=== PATIENT | female | born 1995 | race Hispanic/Latino ===

== ENCOUNTER 2019-12-16 10:25 | Emergency (ER) | payer SELFPAY | END 2019-12-16 12:55 | disposition home or self-care (01) | LOC: ERS 10:25 | DX: J02.9 Acute pharyngitis, unspecified (principal) | CPT/HCPCS: 87804; 99283 ==

== ENCOUNTER 2020-06-17 06:41 | Emergency (ER) | payer SELFPAY ==
[2020-06-17] MEDS ORDERED: Ketorolac Tromethamine 30 MG/ML VIAL ONE (07:50)
[2020-06-17] MEDS ORDERED: Acetaminophen 500 MG TAB ONE (07:50)
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
== END 2020-06-17 08:50 | disposition home or self-care (01) ==
LOC: ERS 06:41
DX: S16.1XXA Strain of muscle, fascia and tendon at neck level, initial encounter (principal); M54.5 Low back pain; V89.2XXA Person injured in unspecified motor-vehicle accident, traffic, initial encounter
CPT/HCPCS: 72040; 72100; 96372; J1885

== ENCOUNTER 2024-03-19 16:19 | Observation (INO) | payer SELFPAY ==
[2024-03-19 17:18] LABS: #Basophils Less than 0.03 10x3/uL (0.0-0.2); #Eosinphils Less than 0.03 10x3/uL (0.0-0.7); %Basophils 0.1 % (0.0-1.0); %Lymphocytes 10.2 % (21.0-51.0); %Monocytes 2.9 % (0.0-10.0); %Neutrophils 86.4 % (42.0-75.0); Hematocrit 40.5 % (36.0-47.0); Hemoglobin 13.8 g/dL (12.0-16.0); Mean Corpuscular HGB CONC 34.1 g/dL (32.0-36.0); Mean Corpuscular Hemoglobin 31.4 pg (27.0-31.0); Mean Corpuscular Volume 92.3 fL (78.0-98.0); Mean Platelet Volume 10.2 fL (7.4-10.4); Platelet Count 467 10x3/uL (130-400); RBC Distribution Width 12.6 % (11.5-14.5); Red Blood Cell (RBC) Count 4.39 mill/uL (4.20-5.40)
[2024-03-19 17:33] LABS: ALT (SGPT) 14 U/L (8-55); AST (SGOT) 15 U/L (5-34); Alkaline Phosphatase 92 U/L (40-110); Anion Gap 12 mmol/L (10-20); BUN (Urea Nitrogen) 8 mg/dL (7.0-18.7); Bilirubin, Total 0.6 mg/dL (0.2-1.2); Calc. Creatinine Clearance 0 mL/min (70-130); Calcium 9.4 mg/dL (7.8-10.44); Carbon Dioxide 26 mmol/L (22-29); Chloride 103 mmol/L (98-107); Estimated GFR 122; Globulin 4.1 g/dL (2.4-3.5); Glucose 119 mg/dL (70-105); Lipase 16 U/L (8-78); Potassium 3.6 mmol/L (3.5-5.1); Protein, Total 8.1 g/dL (6.0-8.3); Sodium 137 mmol/L (136-145)
[2024-03-19] MEDS ORDERED: Ondansetron PF 4 MG/2 ML Vial ONE (18:38)
[2024-03-19] MEDS ORDERED: Morphine 4 MG/ML VIAL ONE (18:38)
[2024-03-19 19:57] LABS: Bacteria/HPF 1+ HPF (None Seen); Bilirubin Negative (Negative); Blood, Urine 3+ (Negative); CAUTI Indications for Culture Pelvic or flank pain; Clarity Clear (Clear); Glucose, Urine (Dipstick) Normal (Negative); Ketone, Urine Negative (Negative); Leukocyte Negative Leu/uL (Negative); Nitrite Negative (Negative); Protein, Urine (Dipstick) Negative (Neg-Trace); Specific Gravity, Urine 1.005 (1.002-1.036); Squamous Epithelial 0-3 HPF (0-3); Urobilinogen Normal mg/dL (Less than 2); WBC/HPF None Seen HPF (0-3); pH, Urine 6.5 (5.0-9.0)
[2024-03-19 19:58] LABS: Pregnancy Test - Urine (BHCG) Negative (Negative); Pregu Control Background? CLEAR/WHITE (CLR/WHITE); Pregu Control Bar Appear? YES (CONTROL BAR); Specific Gravity 1.005 (1.002-1.036); Urine Culture Reflex No No
[2024-03-19] MEDS ORDERED: Ondansetron PF 4 MG/2 ML Vial IVP PRN (20:56)
[2024-03-19] MEDS ORDERED: Ipratropium/Albuterol 3 ML NEB NEB PRN (20:56)
[2024-03-19] MEDS ORDERED: Morphine 2 MG/ML VIAL SLOW IVP PRN (20:56)
[2024-03-19] MEDS ORDERED: Piperacillin/Tazobactam 4.5 GM VIAL ONE (21:13)
[2024-03-19] MEDS ORDERED: Sodium Chloride 0.9% 100 ML ONE (21:14)
[2024-03-19] MEDS ORDERED: Piperacillin/Tazobactam 3.375 GM in Sodium Chloride 0.9% 100 ML IVPB SCH (21:15)
[2024-03-19 22:35] VITALS: BMI 34.2
[2024-03-20] MEDS: Acetaminophen 325 MG TAB PO SCH (02:01)
[2024-03-20] MEDS: Famotidine/PF 20 mg/2ml Vial SLOW IVP SCH (02:03)
[2024-03-20] MEDS: Piperacillin/Tazobactam 3.375 GM in Sodium Chloride 0.9% 100 ML IVPB SCH (02:05)
[2024-03-20] MEDS: Sodium Chloride 0.9% 1,000 ML IV SCH (02:06)
[2024-03-20] MEDS ORDERED: Bupivacaine PF 0.5% 30 ML VIAL ONE (07:56)
[2024-03-20] MEDS ORDERED: EPINEPHrine 1 MG/ML VIAL ONE (07:56)
[2024-03-20] MEDS ORDERED: traMADol HCl 50 MG TAB PO PRN (07:57)
[2024-03-20 08:24] LABS: #Basophils Less than 0.03 10x3/uL (0.0-0.2); %Basophils 0.2 % (0.0-1.0); %Eosinophils 1.5 % (0.0-10.0); %Lymphocytes 26.8 % (21.0-51.0); %Monocytes 7.4 % (0.0-10.0); %Neutrophils 63.8 % (42.0-75.0); Hematocrit 36.5 % (36.0-47.0); Hemoglobin 12.3 g/dL (12.0-16.0); Mean Corpuscular HGB CONC 33.7 g/dL (32.0-36.0); Mean Corpuscular Hemoglobin 31.8 pg (27.0-31.0); Mean Corpuscular Volume 94.3 fL (78.0-98.0); Mean Platelet Volume 10.6 fL (7.4-10.4); Platelet Count 384 10x3/uL (130-400); Red Blood Cell (RBC) Count 3.87 mill/uL (4.20-5.40)
[2024-03-20] MEDS: Acetaminophen 500 MG TAB PO SCH (08:49)
[2024-03-20] MEDS: Scopolamine 1 mg/72 hour Patch TD SCH (08:52)
[2024-03-20] MEDS: Ketorolac Tromethamine 30 MG (1 mL) VIAL IVP SCH (08:52)
[2024-03-20] MEDS ORDERED: Acetaminophen 325 MG TAB PO SCH (09:00)
[2024-03-20] MEDS ORDERED: Rocuronium Bromide 10 MG/ML (10ML VIAL) ONE (10:14)
[2024-03-20] MEDS ORDERED: Midazolam HCl 2 mg/2 ml Vial ONE (10:14)
[2024-03-20] MEDS ORDERED: fentaNYL PF 100 MCG/2 ML SYRINGE ONE ×2 (10:14→10:38)
[2024-03-20] MEDS ORDERED: PROPOFOL 20 ML ONE (10:15)
[2024-03-20] MEDS ORDERED: Dexamethasone 20 MG/5 ML VIAL ONE (10:25)
[2024-03-20] MEDS ORDERED: Lidocaine 1% PF 5 ML VIAL ONE (10:25)
[2024-03-20 10:28] LABS: Anion Gap 13 mmol/L (10-20); BUN (Urea Nitrogen) 8 mg/dL (7.0-18.7); Calc. Creatinine Clearance 157 mL/min (70-130); Calcium 8.5 mg/dL (7.8-10.44); Carbon Dioxide 23 mmol/L (22-29); Chloride 108 mmol/L (98-107); Estimated GFR 122; Glucose 95 mg/dL (70-105); Potassium 3.4 mmol/L (3.5-5.1); Sodium 141 mmol/L (136-145)
[2024-03-20] MEDS ORDERED: Promethazine HCl 25 MG/ML VIAL IM PRN (10:48)
[2024-03-20] MEDS ORDERED: Ondansetron HCl/PF 4 MG/2 ML Vial IVP PRN (10:48)
[2024-03-20] MEDS ORDERED: Meperidine HCl/PF 25 MG/ML VIAL SLOW IVP PRN (10:48)
[2024-03-20] MEDS ORDERED: HYDROmorphone 2 MG/ML VIAL SLOW IVP PRN (10:48)
[2024-03-20] MEDS ORDERED: SUGAMMADEX SODIUM 200 MG/2 ML VIAL ONE (10:59)
[2024-03-20] MEDS ORDERED: Meperidine HCl/PF 25 MG (1 mL) VIAL ONE (11:29)
[2024-03-20] MEDS ORDERED: Promethazine HCl 25 MG/ML VIAL ONE (11:37)
[2024-03-20] MEDS ORDERED: fentaNYL 50 mcg/mL 1 mL Vial ONE (11:44)
[2024-03-20] MEDS ORDERED: Ketorolac Tromethamine 30 MG (1 mL) VIAL IVP SCH (12:00)
[2024-03-20 12:58] VITALS: BP 116/78; TEMP 97
[2024-03-20] MEDS ORDERED: Ibuprofen 600 MG TAB PO PRN (15:00)
== END 2024-03-20 15:46 | disposition home or self-care (01) ==
LOC: ERS 16:19 → T4-A 20:56
PROVIDERS: ADMIT Specialist; ATTEND Specialist
PROC: 0FT44ZZ Resection of Gallbladder, Percutaneous Endoscopic Approach (ICD-10-PCS; principal; 2024-03-20)
DX: K80.12 Calculus of gallbladder with acute and chronic cholecystitis without obstruction (principal)
CPT/HCPCS: 36415; 76705; 80048; 80053; 81001; 81025; 83690; 85025; 88304; 96375; 96376; C1889; G0378; J0171; J0665; J1100; J1885; J2175; J2250; J2270; J2405; J2543; J2550; J2704; J3010; J3490; J7050; S0028